=== PATIENT | female | born 1965 | race Caucasian/White ===

== ENCOUNTER 2020-01-18 19:30 | Emergency (ER) | payer OTHER, SELFPAY ==
[2020-01-18] VITALS (9 sets, daily range): BP systolic 136–171; BP diastolic 72–95; PULSE 63–85; RESP 14–28; TEMP 36.2; O2SAT 100
--- NOTE | 2020-01-18 19:52 | ED.ABDPAIN ---
HPI - Abdominal Pain General Chief Complaint: Abdominal Pain Stated Complaint: lwr left abdominal pain Time Seen by Provider: 01/18/20 19:40 Source: patient Mode of arrival: Ambulatory Limitations: no limitations History of Present Illness HPI narrative: 54-year-old female former smoker with noncontributory medical history presents with a chief complaint of a sudden onset left lower quadrant pain that started 5 hours ago. She denies any provocation, palliation or radiation. She states she cannot find a position of comfort. She denies nausea or vomiting. She has intense pain that she has never felt before. She denies any injury. She has had no dysuria, frequency, urgency or change in bowel habits such as constipation or diarrhea. She denies any abnormal rash. She has had no dietary or medication change. MD complaint: abdominal pain Onset (ago): hour(s) Pain Consistency: constant Location: LLQ Severity: moderate Quality: cramping Radiation: none Migration to: no migration Relieving factors: nothing Exacerbating factors: nothing Associated symptoms: denies other symptoms Related Data Previous Rx's Medication Instructions Recorded cephalexin [Keflex] 500 mg PO QID 7 Days #28 cap 01/18/20 hydrocodone-acetaminophen 1 tab PO Q4-6H PRN #10 tab 01/18/20 ketorolac 10 mg PO Q6H PRN #14 tab 01/18/20 ondansetron 4 mg PO TID-QID PRN #10 tab 01/18/20 Allergies Allergy/AdvReac Type Severity Reaction Status Date / Time amoxicillin Allergy Unknown Verified 01/18/20 19:40 Review of Systems Constitutional Constitutional: Denies chills, Denies fatigue, Denies fever(s), Denies frequent falls, Denies lethargy and Denies weakness Eyes Eyes: Denies change in vision, Denies eye discharge, Denies irritation and Denies loss of vision ENT Ears, Nose, Mouth, and Throat: Denies change in voice, Denies dizziness, Denies neck pain, Denies sore throat and Denies throat swelling Cardiovascular Cardiovascular: Denies chest pain, Denies irregular heart rhythm, Denies lightheadedness, Denies palpitations, Denies dyspnea, Denies dyspnea on exertion and Denies orthopnea Respiratory Respiratory: Denies cough, Denies dyspnea, Denies dyspnea on exertion and Denies wheezing Gastrointestinal Gastrointestinal: Reports abdominal pain, Denies change in bowel habits, Denies diarrhea, Denies nausea and Denies vomiting Musculoskeletal Musculoskeletal: Denies neck pain and Denies numbness Integumentary/Breasts Skin/Breast: Denies pruritus, Denies erythema, Denies rash and Denies wounds Neurologic Neurologic: Denies behavioral changes, Denies confusion, Denies dizziness, Denies frequent falls, Denies loss of vision, Denies numbness and Denies weakness Psychiatric Psychiatric: Denies anxiety, Denies behavioral changes, Denies confusion, Denies depression, Denies homicidal ideation and Denies suicidal ideation Endocrine Endocrine: Denies fatigue, Denies flushing and Denies palpitations Hematologic/Lymphatic Hematologic/Lymphatic: Denies easy bruising Allergic/Immunologic Allergic/Immunologic: Denies urticaria, Denies throat swelling and Denies wheezing Patient History Social History Smoking Status: Never smoker Smoking Status: Never smoker alcohol intake frequency: 0-2 drinks per day Substance Use Type: does not use Exam Narrative Exam Narrative: GENERAL: [54] year old patient appears stated age. Well-nourished, well-developed patient, in moderate distress, obviously quite uncomfortable and rubbing her abdomen HEAD: Atraumatic. Normocephalic. EYES: Pupils equal round and reactive. Extraocular motions intact. No scleral icterus. No injection or drainage. ENT: Nose without bleeding, purulent drainage. Throat without erythema, tonsillar hypertrophy or exudate. Airway patent. NECK: Trachea midline. Non tender CARDIOVASCULAR: Regular rate and rhythm without murmurs, gallops, or rubs. RESPIRATORY: Clear to auscultation. Breath sounds equal bilaterally. No wheezes, rales, or rhonchi. GASTROINTESTINAL: Abdomen soft, tender to palpation in the left lower quadrant, nondistended. Bowel sounds noted in all 4 quadrants EXTREMITIES: No edema or joint tenderness. BACK: Nontender without deformity or crepitance. No flank tenderness. NEURO: AOx3. SKIN: No rash or erythema of visible areas Initial Vital Signs Initial Vital Signs: Vital Signs Temperature 97.1 F L 01/18/20 19:37 Pulse Rate 69 01/18/20 19:37 Respiratory Rate 14 01/18/20 19:37 Blood Pressure 151/79 H 01/18/20 19:37 Pulse Oximetry 100 01/18/20 19:37 Course Orders Ordered: ED Orders 01/18/20 19:52 EKG-12 Lead Stat 01/18/20 20:00 Complete Blood Count AUTO DIFF Stat Comprehensive Metabolic Panel Stat Lipase Stat Partial Thromboplastin Time Stat Prothrombin Time INR Stat 01/18/20 20:50 CT abdomen pelvis w con Stat Discontinued Medications Hydrocodone Bitart/Acetaminophen (Vicodin 5/325 Prepack) 1 bottle MISC SEEINSTR ONE Stop: 01/18/20 22:20 Last Admin: 01/18/20 22:47 Dose: 1 bottle Documented by: ALLISON Sodium Chloride (Normal Saline 0.9%) 1,000 mls @ 1,000 mls/hr IV BOLUS ONE Stop: 01/18/20 20:50 Last Infusion: 01/18/20 21:28 Dose: 0 mls/hr Documented by: Admin: 01/18/20 20:06 Dose: 1,000 mls/hr Documented by: ALLISON Ketorolac Tromethamine (Toradol) 15 mg IV NOW ONE Stop: 01/18/20 19:52 Last Admin: 01/18/20 20:06 Dose: 15 mg Documented by: ALLISON Ondansetron HCl (Zofran) 4 mg IV NOW ONE Stop: 01/18/20 19:44 Last Admin: 01/18/20 20:07 Dose: 4 mg Documented by: ALLISON Ondansetron HCl (Zofran) 4 mg IV Q4HR PRN PRN Reason: Nausea And Vomiting Ondansetron HCl (Zofran Odt Prepack) 1 bottle MISC SEEINSTR ONE Stop: 01/18/20 22:20 Last Admin: 01/18/20 22:47 Dose: 1 bottle Documented by: ALLISON Vital Signs Vital signs: Vital Signs - 8 hr 01/18/20 19:37 01/18/20 20:21 01/18/20 20:29 Temperature 97.1 F L Pulse Rate 69 63 71 Respiratory Rate 14 18 28 H Blood Pressure 151/79 H 145/75 H Pulse Oximetry 100 100 100 01/18/20 20:30 01/18/20 20:31 01/18/20 21:00 Temperature Pulse Rate 66 64 64 Respiratory Rate 20 19 24 Blood Pressure 145/75 H 160/86 H Pulse Oximetry 100 100 100 01/18/20 21:30 01/18/20 22:00 01/18/20 22:30 Temperature Pulse Rate 68 74 85 Respiratory Rate 19 17 Blood Pressure 171/95 H 136/74 141/72 H Pulse Oximetry 100 100 100 MDM - Abdominal Pain Lab Data Result diagrams: 01/18/20 20:00 01/18/20 20:00 Labs: Lab Results 01/18/20 01/18/20 01/18/20 Range/Units 20:00 20:00 20:00 WBC 12.9 H (4.5-11.0) X10^3/uL RBC 3.95 L (4.0-5.2) X10^6/uL Hgb 12.6 (12.0-16.0) g/dL Hct 37.3 (36-46) % MCV 94.4 (80-100) fL MCH 31.9 (26-34) PG MCHC 33.7 (30-36) % RDW 13.7 (11.6-14.8) % Plt Count 288 (150-400) X10^3/uL Neut % (Auto) 84.9 H (50-75) % Lymph % (Auto) 10.2 L (25-40) % [place] % (Auto) 3.9 (3-14) % Eos % (Auto) 0.5 L (2-4) % Baso % (Auto) 0.5 (0-2) % Neut # (Auto) 84855 H (2097-2772) /uL Lymph # (Auto) 1300 (0881-2067) /uL Hubbard # (Auto) 500 (0-900) /uL Eos # (Auto) 100 (0-450) /uL Baso # (Auto) 100 (0-100) /uL PT 11.3 (10.1-12.7) SECONDS INR 1.0 (0.9-1.3) APTT 31 (26.4-36.2) SECONDS Sodium 132 L (137-145) mmol/L Potassium 4.1 (3.4-5.1) mmol/L Chloride 98 (98-107) mmol/L Carbon Dioxide 26 (22-32) mmol/L BUN 16 (7-17) mg/dL Creatinine 0.88 (0.52-1.04) mg/dL Estimated GFR > 60.0 (>60) mL/min BUN/Creatinine Ratio 18.2 (6-22) Glucose 117 H (70-100) mg/dL Calcium 9.9 (8.4-10.2) mg/dL Total Bilirubin 0.5 (0.2-1.3) mg/dL AST 36 (14-36) IU/L ALT 35 H (<35) IU/L Alkaline Phosphatase 113 (38-126) U/L Total Protein 7.2 (6.3-8.2) g/dL Albumin 4.5 (3.5-5.0) g/dL Globulin 2.7 (1.7-4.1) g/dL Albumin/Globulin Ratio 1.7 (1.0-2.8) Lipase 51 (23-300) U/L Point of care testing: Urine Dip Bedside Urine Glucose Negative Bedside Urine Bilirubin - Negative Bedside Urine Ketone +/- 5 Urine Specific [place] 1.015 Bedside Urine Occult Blood +/- Bedside Urine pH 6.0 Bedside Urine Protein - Negative Bedside Urine Urobilinogen - Negative Bedside Urine Nitrite - Negative Bedside Urine Leukocytes - Negative Esterase MDM Narrative Medical decision making narrative: Patient feeling much better after the above stated therapies. Urine suggests no infection. CT with contrast chosen given lack of obvious findings in urine. Passed or missed stone most likely given rapid onset, lack of provocation or palliation and findings on CT. Also considered pyelo, ovarian trouble, bowel infection, SBO vs. other. Return precautions given. Questions answered to their apparent satisfaction. Discharge Plan Departure Patient Disposition: Home Clinical Impression: Left groin pain, Kidney stone Discharge Date/Time: 01/18/20 22:55 Instructions: DI for Kidney Stones Activity Restrictions/Additional Instructions: *You have been diagnosed with [ left groin pain, likely left kidney stone ] *What to do: *Take medications as directed *Follow up with your primary care provider in 2-3 days, call for an appointment. Let them know you were seen in the Emergency Department and that we ask that you be seen in follow up *Return to ER if you should have any new, worsening or concerning symptoms Prescriptions: New hydrocodone-acetaminophen 5-325 mg tablet 1 tab PO Q4-6H PRN (Reason: pain) Qty: 10 RF: 0 cephalexin [Keflex] 500 mg capsule 500 mg PO QID 7 Days Qty: 28 RF: 0 ketorolac 10 mg tablet 10 mg PO Q6H PRN (Reason: pain) Qty: 14 RF: 0 ondansetron 4 mg tablet,disintegrating 4 mg PO TID-QID PRN (Reason: nausea and vomiting) Qty: 10 RF: 0
[2020-01-18 20:06] LABS: Add Manual Diff / Slide Review NO; Basophils Absolute Auto 100 /uL (0-100); Basophils Percent Auto 0.5 % (0-2); Eosinophils Absolute Auto 100 /uL (0-450); Eosinophils Percent Auto 0.5 % (2-4); Hematocrit 37.3 % (36-46); Hemoglobin 12.6 g/dL (12.0-16.0); Lymphocytes Absolute Auto 1300 /uL (1100-4500); Lymphocytes Percent Auto 10.2 % (25-40); Mean Corpuscular HGB Conc 33.7 % (30-36); Mean Corpuscular Hemoglobin 31.9 PG (26-34); Mean Corpuscular Volume 94.4 fL (80-100); Monocytes Absolute Auto 500 /uL (0-900); Monocytes Percent Auto 3.9 % (3-14); Neutrophils Absolute Auto 10900 /uL (1500-7000); Neutrophils Percent Auto 84.9 % (50-75); Platelet Count 288 X10^3/uL (150-400); Red Blood Cell Count 3.95 X10^6/uL (4.0-5.2); Red Cell Distribution Width 13.7 % (11.6-14.8); White Blood Cell Count 12.9 X10^3/uL (4.5-11.0)
[2020-01-18] MEDS: KETOROLAC 60 MG/2 ML VIAL 15 MG IV (20:06)
[2020-01-18] MEDS: SODIUM CHLORIDE 0.9% 1,000 ML 1000 ML IV (20:06)
[2020-01-18] MEDS: ONDANSETRON 4 MG/2 ML INJ IV (20:07)
[2020-01-18 20:17] LABS: Alanine Aminotransferase 35 IU/L (<35); Albumin 4.5 g/dL (3.5-5.0); Albumin Globulin Ratio 1.7 (1.0-2.8); Alkaline Phosphatase 113 U/L (38-126); Aspartate Aminotransferase 36 IU/L (14-36); BUN Creatinine Ratio 18.2 (6-22); Bilirubin Total 0.5 mg/dL (0.2-1.3); Blood Urea Nitrogen 16 mg/dL (7-17); Calcium 9.9 mg/dL (8.4-10.2); Carbon Dioxide 26 mmol/L (22-32); Chloride 98 mmol/L (98-107); Estimated Glomerular Filt Rate > 60.0 mL/min (>60); Globulin 2.7 g/dL (1.7-4.1); Glucose 117 mg/dL (70-100); HEMOLYSIS < 15 (0-50); Lipase 51 U/L (23-300); Potassium 4.1 mmol/L (3.4-5.1); Sodium 132 mmol/L (137-145); Total Protein 7.2 g/dL (6.3-8.2)
[2020-01-18 20:28] LABS: Prothrombin Time 11.3 SECONDS (10.1-12.7)
[2020-01-18 20:30] LABS: PTT Partial Thromboplastin Tim 31 SECONDS (26.4-36.2)
--- NOTE | 2020-01-18 20:50 | DI.CT.S_ITS ---
PROCEDURE: CT ABDOMEN PELVIS W CON INDICATIONS: severe left lower quadrant pain TECHNIQUE: After the administration of intravenous contrast, 5 mm thick sections acquired from the diaphragm to the symphysis. 5 mm coronal and sagittal reformats were acquired. For radiation dose reduction, the following was used: automated exposure control, adjustment of mA and/or kV according to patient size. COMPARISON: None. FINDINGS: Image quality: Excellent. ABDOMEN: Lung bases: Lung bases are clear. Heart size is normal. Solid organs: Liver is normal in size and enhancement. Gallbladder negative . Biliary system is non dilated. Pancreas enhances normally. Spleen is normal in size and enhancement. No adrenal nodules. Right kidney unremarkable. There is left perinephric increased attenuation. There is mild left pelviectasis and proximal left hydroureter. No definite urolithiasis is identified on this contrast-enhanced examination. There are numerous bilateral pelvic phleboliths which confound evaluation of the distal ureters. No definite bladder calculus is seen. Peritoneum and bowel: Bowel loops demonstrate normal wall thickness and caliber. No free fluid or air. Colonic diverticulosis is seen without evidence of acute complication. Normal appendix. Nodes and vessels: No retroperitoneal or mesenteric adenopathy by size criteria. Aorta and inferior vena cava are normal in size. Miscellaneous: No ventral hernias. PELVIS: Miscellaneous: No inguinal hernias or adenopathy. Bones: No suspicious bony lesions. No vertebral body compression fractures. IMPRESSION: Prominent left perinephric inflammatory appearance and increased attenuation. Mild left pelviectasis and proximal hydroureter. No definite urolithiasis seen however suboptimal evaluation given the presence of IV contrast. The appearance could reflect recently passed calculus, and background left pyelonephritis, although cortical enhancement appears grossly preserved. This appearance could also reflect renal lymphoma. Please correlate clinically and with urinalysis/ laboratory data. Additional chronic and incidental findings as above. Dictated by: Brian Lopez M.D. on 01/18/2020 at 21:26 Approved by: Brian Lopez M.D. on 01/18/2020 at 21:31
[2020-01-18] MEDS: ONDANSETRON 4 MG ODT PREPACK 1 BOTTLE MISC (22:47)
[2020-01-18] MEDS: HYDROCODONE/ACET 5/325 PREPACK 1 BOTTLE MISC (22:47)
== END 2020-01-18 22:55 | disposition home or self-care (01) ==
PROVIDERS: Emergency Provider Emergency Medicine
DX: N20.0 Calculus of kidney (principal); R10.32 Left lower quadrant pain
CPT/HCPCS: 36415; 74177; 80053; 81003; 83690; 85025; 85610; 85730; 93005; 96361; 96374; 96375; 99284; J1885; J2405; Q9967